=== PATIENT | male | born 1975 | race Caucasian/White ===

== ENCOUNTER 2024-05-20 20:57 | Emergency (ER) | payer SELFPAY ==
[~2024-05-20] VITALS: Ht 170.2 cm; Wt 80.0 kg
[2024-05-20 21:02] VITALS: BP 117/73; PULSE 90; RESP 16; TEMP 98.1; O2SAT 96
[2024-05-20 23:21] LABS: BASOPHILS % 0.6 % (0.0-2.0); DIFFERENTIAL COMMENT 0; EOSINOPHILS % 2.8 % (0.0-5.0); HEMATOCRIT. 31.7 % (42.0-52.0); HEMOGLOBIN. 10.5 g/dL (14.0-18.0); MEAN CORPUSCULAR HGB CONC 33.1 g/dL (31.0-37.0); MEAN CORPUSCULAR VOLUME 102.8 fL (80.0-94.0); MEAN PLATELET VOLUME 8.7 fl (7.4-10.4); MONOCYTES % 9.2 % (2.0-8.0); NEUTROPHILS % 31.4 % (40.0-76.0); PLATELET 132 x1000/uL (130-400); RED BLOOD CELL COUNT 3.09 mill/uL (4.7-6.1); RED CELL DISTRIBUTION WIDTH 18.1 % (11.6-14.6); WHITE BLOOD COUNT 6.9 x1000/uL (4.5-11.0)
[2024-05-20 23:28] LABS: CHLORIDE 110 mEq/L (98-107); POTASSIUM 3.5 mEq/L (3.5-5.1); SODIUM 144 mEq/L (136-145)
[2024-05-20 23:29] LABS: CARBON DIOXIDE 24 mEq/L (21-32)
[2024-05-20 23:30] LABS: CALCIUM 8.6 mg/dL (8.7-10.4)
[2024-05-20 23:31] LABS: INR 1.1; PROTHROMBIN TIME 12.5 sec (9.6-11.0)
[2024-05-20 23:34] LABS: CREATININE 0.7 mg/dL (0.6-1.3); GLUCOSE 118 mg/dL (70-105); UREA NITROGEN BLOOD 6 mg/dL (9-23)
[2024-05-20 23:35] LABS: ETHANOL BLOOD 300 mg/dL (<10)
[2024-05-21] MEDS ORDERED: PANTOPRAZOLE SODIUM 40 MG/VIAL IV ONE (00:15)
[2024-05-21] MEDS: SODIUM CHLORIDE 0.9% 1,000 ML IV ONE (01:57)
[2024-05-21] MEDS: PANTOPRAZOLE SODIUM 40 MG/VIAL IV NR (02:46)
== END 2024-05-21 03:33 | disposition home or self-care (01) ==
LOC: ER 20:57
DX: F10.229 Alcohol dependence with intoxication, unspecified (principal); I10 Essential (primary) hypertension; R41.82 Altered mental status, unspecified; R42 Dizziness and giddiness; Y90.8 Blood alcohol level of 240 mg/100 ml or more
CPT/HCPCS: 80048; 80320; 83690; 85025; 85610; 36415; 99285; 70450; 96361; 96374; J2470; J7030; G0480

== ENCOUNTER 2024-05-27 14:26 | Emergency (ER) | payer SELFPAY ==
[~2024-05-27] VITALS: Ht 160 cm; Wt 81.0 kg
[2024-05-27 14:33] VITALS: O2SAT 97
[2024-05-27] MEDS ORDERED: AMOX1TAB16 MT (14:49)
[2024-05-27] MEDS: TETANUS, DIPHTHERIA, PERTUSSIS VAC/PF 0.5ML (>10YR OLD) IM ONE (15:30)
[2024-05-27] MEDS: AMOXICILLIN/POTASSIUM CLAVULANATE 875/125MG TAB PO ONE (15:31)
[2024-05-27 15:34] VITALS: BP 133/87; PULSE 78; RESP 18; TEMP 98.5
== END 2024-05-27 15:40 | disposition home or self-care (01) ==
LOC: ER 14:26
DX: S51.031A Puncture wound without foreign body of right elbow, initial encounter (principal); I10 Essential (primary) hypertension; F10.20 Alcohol dependence, uncomplicated; W54.0XXA Bitten by dog, initial encounter; Y93.89 Activity, other specified; Y92.89 Other specified places as the place of occurrence of the external cause; Y99.8 Other external cause status
CPT/HCPCS: 90471; 90715; 99283

== ENCOUNTER 2025-09-09 15:32 | Emergency (ER) | payer MEDICAID, OTHER ==
[~2025-09-09] VITALS: Ht 162.6 cm; Wt 75.0 kg
[~2025-09-09 15:32] MED LIST: COR3 PO; FOLI-43 MT; MULT-1146 MT; PROT40 MT; THIA250T3 MT
[2025-09-09 15:59] VITALS: O2SAT 95
[2025-09-09 16:54] LABS: CREATININE 1.1 mg/dL (0.6-1.3)
[2025-09-09 16:55] LABS: UREA NITROGEN BLOOD 8 mg/dL (9-23)
[2025-09-09 17:57] LABS: BASOPHILS % 1.5 % (0.0-2.0); EOSINOPHILS % 1.3 % (0.0-5.0); HEMATOCRIT. 27.1 % (42.0-52.0); HEMOGLOBIN. 8.8 g/dL (14.0-18.0); LYMPHOCYTES % 53.1 % (20.0-50.0); MEAN PLATELET VOLUME 9.6 fl (7.4-10.4); MONOCYTES % 10.8 % (2.0-8.0); NEUTROPHILS % 33.3 % (40.0-76.0); PLATELET 97 x1000/uL (130-400); RED BLOOD CELL COUNT 2.68 mill/uL (4.7-6.1); RED CELL DISTRIBUTION WIDTH 18.4 % (11.6-14.6)
[2025-09-09] MEDS: MAGNESIUM/ALUMINUM HYDROXIDE/SIMETHICONE 30ML UDC PO ONE (19:51)
[2025-09-09] MEDS: PANTOPRAZOLE 40MG DR TABLET PO ONE (19:52)
[2025-09-09 20:20] VITALS: BP 115/79; PULSE 67; RESP 16; TEMP 36.6; O2SAT 100
[2025-09-09 21:04] LABS: CLARITY URINE CLEAR (CLEAR); COLOR URINE YELLOW (YELLOW); GLUCOSE URINE NEGATIVE (NEGATIVE); KETONES URINE NEGATIVE (NEGATIVE); LEUKOCYTE ESTERASE URINE NEGATIVE (NEGATIVE); NITRITE URINE NEGATIVE (NEGATIVE); OCCULT BLOOD URINE 2+ (NEGATIVE); PH URINE 6.0 (4.5-8.0); PROTEIN URINE NEGATIVE (NEGATIVE); SPECIFIC GRAVITY URINE 1.020 (1.005-1.030); UROBILINOGEN URINE 1.0 E.U./dL (0.2-1.0)
[2025-09-09 21:18] LABS: BACTERIA URINE TRACE; SQUAMOUS EPITHELIAL CELL URINE FEW /lpf (RARE/1+); WBC URINE 0-2 /hpf (0-2)
[2025-09-09] MEDS ORDERED: FOLI-43 MT (22:19)
[2025-09-09] MEDS ORDERED: TOPUD MT (22:19)
[2025-09-09] MEDS ORDERED: MULT-1146 MT (22:19)
[2025-09-09] MEDS ORDERED: THIA250T3 MT (22:20)
[2025-09-10] MEDS ORDERED: BO1 TP (18:04)
== END 2025-09-09 22:59 | disposition home or self-care (01) ==
LOC: ER 15:53
DX: K29.00 Acute gastritis without bleeding (principal); F10.90 Alcohol use, unspecified, uncomplicated; I10 Essential (primary) hypertension; Y90.9 Presence of alcohol in blood, level not specified
CPT/HCPCS: 36415; 80048; 81003; 82270; 85025; 99283

== ENCOUNTER 2025-09-10 13:00 | Emergency (ER) | payer OTHER ==
[~2025-09-10] VITALS: Ht 162.6 cm; Wt 75.0 kg
[~2025-09-10 13:00] MED LIST changes: +TOPUD MT
[2025-09-10 13:08] VITALS: BP 102/82; PULSE 81; RESP 16; TEMP 36.7; O2SAT 99
[2025-09-10 16:38] LABS: BASOPHILS % 1.3 % (0.0-2.0); EOSINOPHILS % 0.6 % (0.0-5.0); HEMATOCRIT. 31.4 % (42.0-52.0); HEMOGLOBIN. 10.1 g/dL (14.0-18.0); LYMPHOCYTES % 55.1 % (20.0-50.0); MEAN PLATELET VOLUME 9.5 fl (7.4-10.4); MONOCYTES % 6.5 % (2.0-8.0); NEUTROPHILS % 36.5 % (40.0-76.0); PLATELET 96 x1000/uL (130-400); RED BLOOD CELL COUNT 3.10 mill/uL (4.7-6.1); RED CELL DISTRIBUTION WIDTH 18.3 % (11.6-14.6)
[2025-09-10 16:51] LABS: CREATININE 0.7 mg/dL (0.6-1.3); UREA NITROGEN BLOOD 8 mg/dL (9-23)
[2025-09-10] MEDS ORDERED: BO1 TP (18:04)
[2025-09-10] MEDS: SODIUM CHLORIDE 0.9% 1,000 ML IV ONE (18:44)
== END 2025-09-10 18:45 | disposition home or self-care (01) ==
LOC: ER 13:00
DX: S50.311A Abrasion of right elbow, initial encounter (principal); F10.229 Alcohol dependence with intoxication, unspecified; R51.9 Headache, unspecified; Z20.822 Contact with and (suspected) exposure to COVID-19; Z79.899 Other long term (current) drug therapy; X58.XXXA Exposure to other specified factors, initial encounter; Y93.89 Activity, other specified; Y92.89 Other specified places as the place of occurrence of the external cause; Y99.8 Other external cause status; Y90.8 Blood alcohol level of 240 mg/100 ml or more
CPT/HCPCS: 80048; 80320; 85025; 36415; 73070; 70450; 99284; J7030; G0480

== ENCOUNTER 2025-09-15 02:23 | Emergency (ER) | payer OTHER ==
[~2025-09-15] VITALS: Ht 162.6 cm; Wt 76.0 kg
[~2025-09-15 02:23] MED LIST changes: +BO1 TP
[2025-09-15 02:38] VITALS: O2SAT 99
[2025-09-15 03:47] LABS: HEMATOCRIT. 32.0 % (42.0-52.0); HEMOGLOBIN. 10.2 g/dL (14.0-18.0); MEAN PLATELET VOLUME 9.0 fl (7.4-10.4); PLATELET 131 x1000/uL (130-400); RED BLOOD CELL COUNT 3.23 mill/uL (4.7-6.1); RED CELL DISTRIBUTION WIDTH 19.2 % (11.6-14.6)
[2025-09-15 04:04] LABS: CREATININE 0.7 mg/dL (0.6-1.3); UREA NITROGEN BLOOD 7 mg/dL (9-23)
[2025-09-15 04:06] LABS: ASPARTATE AMINOTRANSFERASE 121 IU/L (<34); BILIRUBIN DIRECT 0.6 mg/dL (<=3.0); BILIRUBIN TOTAL 1.2 mg/dL (0.1-1.0); PROTEIN TOTAL 8.0 g/dL (6.0-8.3)
[2025-09-15] MEDS ORDERED: KETOROLAC 15MG/ML VIAL IM ONE (04:45)
[2025-09-15] MEDS: MORPHINE SULFATE 4 MG/ML INJ (FOR IV/IM USE) IM ONE (04:51)
[2025-09-15] MEDS: ONDANSETRON 4MG ODT PO PRN (04:51)
[2025-09-15] MEDS ORDERED: PHEN51CR14 RC (05:19)
[2025-09-15 05:36] VITALS: BP 133/71; PULSE 79; RESP 18; TEMP 36.8; O2SAT 99
[2025-09-15 08:21] LABS: EOSINOPHILS % MANUAL 1.0 % (0.0-5.0); LYMPHOCYTES % MANUAL 69.0 % (20.0-50.0); MONOCYTES % MANUAL 8.0 % (2.0-8.0); NEUTROPHILS % MANUAL 22.0 % (45.0-75.0); PLATELET ESTIMATE NORMAL
== END 2025-09-15 05:38 | disposition home or self-care (01) ==
LOC: ER 02:23
DX: K64.8 Other hemorrhoids (principal); F10.229 Alcohol dependence with intoxication, unspecified; Z79.899 Other long term (current) drug therapy; Y90.9 Presence of alcohol in blood, level not specified
CPT/HCPCS: 99283; 80076; 80048; 83690; 85025; 36415; 96372; Q0162; J2270; J1885

== ENCOUNTER 2025-09-17 18:25 | Emergency (ER) | payer OTHER ==
[~2025-09-17] VITALS: Ht 167.6 cm; Wt 75.0 kg
[~2025-09-17 18:25] MED LIST changes: +PHEN51CR14 RC
[2025-09-17 18:29] VITALS: O2SAT 98
[2025-09-17 20:02] LABS: HEMATOCRIT. 26.5 % (42.0-52.0); HEMOGLOBIN. 8.7 g/dL (14.0-18.0); MEAN PLATELET VOLUME 8.9 fl (7.4-10.4); PLATELET 84 x1000/uL (130-400); RED BLOOD CELL COUNT 2.70 mill/uL (4.7-6.1); RED CELL DISTRIBUTION WIDTH 18.3 % (11.6-14.6)
[2025-09-17 20:12] LABS: INR 1.2
[2025-09-17 20:18] LABS: CREATININE 0.8 mg/dL (0.6-1.3); UREA NITROGEN BLOOD 6 mg/dL (9-23)
[2025-09-17 20:19] LABS: ASPARTATE AMINOTRANSFERASE 162 IU/L (<34)
[2025-09-17] MEDS: METHOCARBAMOL 500MG TABLET PO ONE (20:19)
[2025-09-17 20:20] LABS: BILIRUBIN DIRECT 0.7 mg/dL (<=3.0); BILIRUBIN TOTAL 1.5 mg/dL (0.1-1.0); PROTEIN TOTAL 7.3 g/dL (6.0-8.3)
[2025-09-17 20:28] LABS: ETHANOL BLOOD 292 mg/dL (<10); LYMPHOCYTES % MANUAL 58.0 % (20.0-50.0); MONOCYTES % MANUAL 7.0 % (2.0-8.0); NEUTROPHILS % MANUAL 35.0 % (45.0-75.0); PLATELET ESTIMATE DECREASED
[2025-09-17] MEDS ORDERED: IBUP-1455 MT (20:52)
[2025-09-17] MEDS ORDERED: METH-653 MT (20:52)
[2025-09-18 02:35] VITALS: TEMP 36.9
[2025-09-18] MEDS: ONDANSETRON HCL 4MG/2ML INJ IV NR (04:35)
[2025-09-18 05:10] VITALS: BP 128/76; PULSE 82; RESP 18; O2SAT 96
== END 2025-09-18 05:30 | disposition home or self-care (01) ==
LOC: ER 18:25
DX: S33.5XXA Sprain of ligaments of lumbar spine, initial encounter (principal); F10.129 Alcohol abuse with intoxication, unspecified; I10 Essential (primary) hypertension; R41.0 Disorientation, unspecified; F19.10 Other psychoactive substance abuse, uncomplicated; I67.82 Cerebral ischemia; K74.60 Unspecified cirrhosis of liver; Z79.899 Other long term (current) drug therapy; W11.XXXA Fall on and from ladder, initial encounter; Y93.89 Activity, other specified; Y92.89 Other specified places as the place of occurrence of the external cause; Y99.8 Other external cause status; Y90.8 Blood alcohol level of 240 mg/100 ml or more
CPT/HCPCS: 80076; 80048; 80320; 85025; 85610; 85730; 86850; 86900; 86901; 36415; 70450; 72131; 74176; 99285; 96374; J2405; G0480

== ENCOUNTER 2025-09-24 13:07 | Emergency (ER) | payer OTHER ==
[~2025-09-24] VITALS: Ht 160 cm; Wt 69.0 kg
[~2025-09-24 13:07] MED LIST changes: +IBUP-1455 MT; +METH-653 MT
[2025-09-24 13:09] VITALS: O2SAT 97
[2025-09-24] MEDS ORDERED: TETRACAINE 0.5% OPHTH DROPS 4ML BOTHEYE ONE (14:30)
[2025-09-24] MEDS ORDERED: FLUORESCEIN SODIUM 1MG/STRIP BOTHEYE ONE (14:30)
[2025-09-24] MEDS: SODIUM CHLORIDE 0.9% 1,000 ML IV ONE (14:55)
[2025-09-24 15:03] LABS: BASOPHILS % 0.9 % (0.0-2.0); EOSINOPHILS % 0.1 % (0.0-5.0); HEMATOCRIT. 32.2 % (42.0-52.0); HEMOGLOBIN. 10.1 g/dL (14.0-18.0); LYMPHOCYTES % 19.6 % (20.0-50.0); MEAN PLATELET VOLUME 9.8 fl (7.4-10.4); MONOCYTES % 7.6 % (2.0-8.0); NEUTROPHILS % 71.8 % (40.0-76.0); PLATELET 84 x1000/uL (130-400); RED BLOOD CELL COUNT 3.20 mill/uL (4.7-6.1); RED CELL DISTRIBUTION WIDTH 20.3 % (11.6-14.6)
[2025-09-24 15:15] LABS: CREATININE 0.8 mg/dL (0.6-1.3)
[2025-09-24 15:16] LABS: ETHANOL BLOOD 185 mg/dL (<10)
[2025-09-24 15:17] LABS: ASPARTATE AMINOTRANSFERASE 61 IU/L (<34); BILIRUBIN TOTAL 2.2 mg/dL (0.1-1.0); PROTEIN TOTAL 7.8 g/dL (6.0-8.3)
[2025-09-24 15:43] LABS: UREA NITROGEN BLOOD 6 mg/dL (9-23)
[2025-09-24 15:55] VITALS: BP 148/76; PULSE 88; RESP 16; TEMP 36.5; O2SAT 97
== END 2025-09-24 15:56 | disposition home or self-care (01) ==
LOC: ER 13:07
DX: T26.91XA Corrosion of right eye and adnexa, part unspecified, initial encounter (principal); T26.92XA Corrosion of left eye and adnexa, part unspecified, initial encounter; F10.229 Alcohol dependence with intoxication, unspecified; I10 Essential (primary) hypertension; Z59.00 Homelessness unspecified; Z79.899 Other long term (current) drug therapy; W44.F9XA Other object of natural or organic material, entering into or through a natural orifice, initial encounter; Y93.89 Activity, other specified; Y92.89 Other specified places as the place of occurrence of the external cause; Y99.8 Other external cause status; Y90.9 Presence of alcohol in blood, level not specified
CPT/HCPCS: 80053; 80320; 85025; 36415; 96360; 99284; J7030; G0480